=== PATIENT | male | born 1995 | race Caucasian/White ===

== ENCOUNTER → 2018-03-20 | Outpatient (REF) | payer BC | LOC: M OUTALCOH 15:56 | DX: F14.20 Cocaine dependence, uncomplicated (principal) | CPT/HCPCS: 36415 ==

== ENCOUNTER → 2018-03-20 | Outpatient (CLI) | payer BC | LOC: M OUTALCOH 12:50 | DX: E13.9 Other specified diabetes mellitus without complications (principal); F14.20 Cocaine dependence, uncomplicated ==